=== PATIENT | male | born 1930 | race Caucasian/White ===

== ENCOUNTER → 2017-04-14 | Outpatient (CLI) | payer MEDICARE, BC ==
[~2017-04-14] VITALS: Ht 177.8 cm; Wt 101.2 kg
== END ==
LOC: OPSV 08:59
DX: T82.858A Stenosis of other vascular prosthetic devices, implants and grafts, initial encounter (principal); N18.5 Chronic kidney disease, stage 5; D50.9 Iron deficiency anemia, unspecified; N25.81 Secondary hyperparathyroidism of renal origin; E87.2 Acidosis
CPT/HCPCS: 96365; 96366; J1756; J7030

== ENCOUNTER → 2017-04-21 | Outpatient (CLI) | payer MEDICARE, BC ==
[~2017-04-21] VITALS: Ht 177.8 cm; Wt 101.2 kg
== END ==
LOC: OPSV 09:00
DX: N18.5 Chronic kidney disease, stage 5 (principal); D50.9 Iron deficiency anemia, unspecified; T82.858A Stenosis of other vascular prosthetic devices, implants and grafts, initial encounter; E87.2 Acidosis; N25.81 Secondary hyperparathyroidism of renal origin
CPT/HCPCS: 82270; 96365; 96366; J1756; J7050

== ENCOUNTER 2020-12-26 14:48 | Emergency (ER) | payer MEDICARE, BC ==
[~2020-12-26 14:48] MED LIST: ASPIRIN325 MG PO; MIDODRINE HCL5 MG PO; PHOSLO 667 MG667 MG PO; PROTONIX40 MG PO; RENVELA800 MG PO
[2020-12-26 15:20] LABS: HEMOGLOBIN 10.3 gm/dl (14.0-17.5); RED BLOOD COUNT 3.05 M/UL (4.20-5.50)
[2020-12-26] MEDS ORDERED: CEFUROXIME500 MG PO (18:31)
== END 2020-12-26 18:52 | disposition home or self-care (01) ==
LOC: ER1 14:48
PROVIDERS: Preventive Medicine Occupational Medicine
DX: I95.9 Hypotension, unspecified (principal); Z20.822 Contact with and (suspected) exposure to COVID-19
CPT/HCPCS: 0240U; 71045; 80053; 85025; 86140; 96365; 99285; J0696; J7050

== ENCOUNTER 2021-12-24 13:34 | Emergency (ER) | payer MEDICARE, BC ==
[~2021-12-24 13:34] MED LIST changes: +CEFUROXIME500 MG PO
[2021-12-24 14:54] LABS: HEMOGLOBIN 11.1 gm/dl (14.0-17.5); RED BLOOD COUNT 3.34 M/UL (4.20-5.50); WHITE BLOOD COUNT 8.1 K/UL (4.5-11.0)
[2021-12-24 15:01] LABS: BUN/CREATININE RATIO 4 (0-10)
== END 2021-12-25 00:05 | disposition home or self-care (01) ==
LOC: ER1 13:34
PROVIDERS: Physician Assistant
DX: R42 Dizziness and giddiness (principal); I10 Essential (primary) hypertension; Z90.49 Acquired absence of other specified parts of digestive tract
CPT/HCPCS: 70450; 71045; 80053; 82550; 82553; 83874; 84484; 85025; 93005; 99283